=== PATIENT | female | born 1975 | race Caucasian/White ===

== ENCOUNTER 2022-08-12 13:10 | Outpatient (CLI) | payer OTHER | END 2022-08-12 13:22 | disposition home or self-care (01) | LOC: SONOGRAMA 13:10 | PROVIDERS: ATTEND Internal Medicine Endocrinology, Diabetes & Metabolism | DX: E04.8 Other specified nontoxic goiter (principal); K76.0 Fatty (change of) liver, not elsewhere classified ==